=== PATIENT | female | born 1935 | race African-American/Black ===

== ENCOUNTER 2019-01-10 21:26 | Emergency (ER) | payer OTHER ==
[~2019-01-10] VITALS: Ht 172.7 cm; Wt 64.0 kg
[~2019-01-10 21:26] MED LIST: AMIODARONE HCL 50MG/ML 3ML VIAL IV ONE; EPINEPHRINE 0.1MG/ML (1:10,000) 10ML SYR ONE; LIDOCAINE HCL 2% 5ML SYRINGE IV ONE; SODIUM BICARBONATE 8.4% MEQ/ML 50ML VIAL IV ONE
[2019-01-10] MEDS ORDERED: DOPAMINE 400MG/250ML PREMIX 250 ML IV ONE ×2 (21:50→22:00)
[2019-01-10] MEDS ORDERED: NOREPINEPHRINE 4MG/250ML PMX 250 ML IV ONE (21:50)
[2019-01-10] MEDS ORDERED: NOREPINEPHRINE 4MG/250ML PMX 250 ML IV NR (21:50)
[2019-01-10] MEDS ORDERED: SODIUM CHLORIDE 0.9% 1000ML BAG (SEPSIS BOLUS) IV ONE (22:00)
[2019-01-10] MEDS ORDERED: DOPAMINE 400MG/250ML PREMIX 250 ML IV NR (22:00)
[2019-01-10] MEDS ORDERED: NOREPINEPHRINE 4 MG in DEXT 5% WATER 246 ML IV ONE (22:00)
[2019-01-10 22:03] LABS: BASOPHILS % 0.5 % (0.0-2.0); EOSINOPHILS % 0.1 % (0.0-5.0); HEMOGLOBIN. 7.7 g/dL (12.0-16.0); LYMPHOCYTES % 13.8 % (20.0-50.0); MEAN CORPUSCULAR HEMOGLOBIN 28.7 pg (28.0-32.0); MEAN CORPUSCULAR VOLUME 93.2 fL (81.0-99.0); MEAN PLATELET VOLUME 11.5 fl (7.4-10.4); NEUTROPHILS % 84.6 % (40.0-76.0); PLATELET 159 x1000/uL (130-400); RED BLOOD CELL COUNT 2.69 mill/uL (4.2-5.4); RED CELL DISTRIBUTION WIDTH 21.1 % (11.6-14.6)
[2019-01-10 22:08] LABS: CHLORIDE 98 mEq/L (98-107)
[2019-01-10 22:18] LABS: BG BASE EXCESS -15.4 mmol/L (-2.0-2.0); BG CARBOXYHEMOGLOBIN 1.3 % (0.5-1.5); BG DEOXYHEMOGLOBIN 0.8 % (0.0-5.0); BG FRACTION INSPIRED OXYGEN 100; BG HCO3 ACT 15.3 mmol/L (22.0-26.0); BG METHEMOGLOBIN 0.5 % (0.0-1.5); BG OXYGEN SATURATION 99.2 % (92.0-98.5); BG OXYHEMOGLOBIN 97.4 % (94.0-97.0); BG PCO2 66.8 mmHg (35.0-45.0); BG PH 6.977 (7.350-7.450); BG PO2 308.2 mmHg (75.0-100.0); BG SAMPLE SITE LEFT FEMORAL; BG TIDAL VOLUME(mL) 450 mL; BG TOTAL HEMOGLOBIN 7.3 g/dL (12.0-18.0); BG VENT MODE VENT - A/C; BG VENT RATE 16 set
[2019-01-10 22:25] LABS: PROTHROMBIN TIME 42.7 sec (9.6-11.0)
[2019-01-10] MEDS ORDERED: LORAZEPAM 2MG/ML CPJ IV ONE (23:00)
[2019-01-10] MEDS ORDERED: MORPHINE SULFATE 4 MG/ML CPJ (NOT FOR IM USE) IV ONE (23:00)
[2019-01-10 23:10] LABS: INR 4.5
[2019-01-11 00:33] VITALS: BP 55/16
== END 2019-01-11 00:49 | disposition expired ==
LOC: ER 21:26 → EDBD 21:26 → ER 01-11 00:49 → CANBEDREQ 01-11 02:59
DX: I46.9 Cardiac arrest, cause unspecified (principal); E87.4 Mixed disorder of acid-base balance; E87.5 Hyperkalemia; Z85.07 Personal history of malignant neoplasm of pancreas
CPT/HCPCS: 31500; 36415; 36556; 36600; 51702; 71045; 80053; 82375; 82805; 82962; 83605; 83690; 83880; 84145; 84484; 85025; 85610; 87040; 87077; 87186; 92950; 93005; 94002; 96365; 96375; 99291; J0282; J1265; J2060; J2270; J3490; J7030; J7060